=== PATIENT | male | born 1970 | race African-American/Black ===

== ENCOUNTER 2018-01-04 16:22 | Emergency (ER) | payer BC ==
[2018-01-04] MEDS ORDERED: Sodium Chloride 0.9% 10 ML Syringe FLUSH PRN (16:36)
[2018-01-04] MEDS ORDERED: Lactated Ringers 1,000 ML IV ONE (16:36)
--- NOTE | 2018-01-04 16:38 | EDM.PDOC ---
ED HPI GENERAL MEDICAL PROBLEM - General Chief Complaint: Neurological Problem Stated Complaint: Dizziness; Lightheaded Time Seen by Provider: 01/04/18 16:26 Source of Information: Reports: Patient, RN, RN Notes Reviewed History Limitations: Reports: No Limitations - History of Present Illness INITIAL COMMENTS - FREE TEXT/NARRATIVE: Patient presents to the ED at [facility] complaining of dizziness and lightheadedness that started around 14:50 today. Patient the symptoms started while he was at work. He left for a brief time to sit in his car. His symptoms got better so he went back to work. He states the symptoms returned and he was told to be seen in the ED. He tried laying down at work, but no relief of symptoms. Patient denies any SOB. No chest pain. Patient denies any N/V/D. No focal neurological deficits. Onset: Gradual Onset Date: 01/04/18 Onset Time: 14:50 Duration: Waxing/Waning - Related Data Allergies Allergy/AdvReac Type Severity Reaction Status Date / Time seafood Allergy Other Uncoded 01/04/18 16:42 Home Meds: Home Meds Aspirin 325 mg PO DAILY 01/04/18 [History] Carvedilol [Coreg] 1.5 cap PO BID 01/04/18 [History] Codeine/Promethazine [Phenergan with Codeine] 5 ml PO Q4HR PRN 01/04/18 [History ] Cyclobenzaprine [Flexeril] 10 mg PO TID 01/04/18 [History] Empagliflozin [Jardiance] 10 mg PO DAILY 01/04/18 [History] Furosemide [Lasix] 40 mg PO DAILY 01/04/18 [History] Lisinopril [Prinivil] 20 mg PO BID 01/04/18 [History] Pantoprazole Sodium [Protonix] 20 mg PO DAILY 01/04/18 [History] Pravastatin [Pravachol] 80 mg PO BEDTIME 01/04/18 [History] Spironolact/Hydrochlorothiazid [Aldactazide 25-25] 1 tab PO DAILY 01/04/18 [ History] predniSONE [Prednisone] 20 mg PO 01/04/18 [History] ED ROS GENERAL - Review of Systems Review Of Systems: See Below Constitutional: Denies: Fever, Chills, Weakness HEENT: Denies: Vision Change Respiratory: Denies: Shortness of Breath, Cough Cardiovascular: Reports: Lightheadedness. Denies: Chest Pain, Palpitations GI/Abdominal: Denies: Abdominal Pain, Nausea, Vomiting Skin: Reports: No Symptoms Neurological: Reports: No Symptoms, Dizziness. Denies: Headache, Numbness, Paresthesia, Tingling ED EXAM, DIZZINESS - Physical Exam Exam: See Below General Appearance: Alert, No Apparent Distress Eye Exam: Bilateral Eye: EOMI, Normal Inspection, PERRL Ears: Normal External Exam, Normal Canal, Normal TMs Head Exam: Atraumatic, Normocephalic Neck: Supple Respiratory/Chest: No Respiratory Distress, Lungs Clear, Normal Breath Sounds Cardiovascular: Normal Peripheral Pulses, Regular Rate, Rhythm GI/Abdominal: Normal Bowel Sounds, Soft, Non-Tender Neurological: Alert, Oriented x 3 Skin Exam: Warm, Dry, Intact, Normal Color EKG INTERPRETATION EKG Date: 01/04/18 Time: 16:54 Rhythm: NSR Rate (Beats/Min): 93 [place]: Normal P-Wave: Present QRS: Normal ST-T: Normal QT: Normal TN/PQ Interval: 0.16 Comparison: NA - No Prior EKG EKG Interpretation Comments: 1. Sinus Rhythm 2. Nonspecific ST & T wave abnormality Course - Vital Signs Last Recorded V/S: Last Vital Signs Temp 35.6 C 01/04/18 16:38 Pulse 90 01/04/18 16:38 Resp 16 01/04/18 16:38 BP 126/64 01/04/18 16:38 Pulse Ox 98 01/04/18 16:38 - Orders/Labs/Meds Orders: Active Orders 24 hr Category Date Time Status EKG 12 Lead [EKG Documentation Completion] [RC] STAT Care 01/04/18 16:33 Active Head wo Cont [CT] Stat Exams 01/04/18 16:34 Taken LACTIC ACID [CHEM] Stat Lab 01/04/18 16:50 Received UA W/MICROSCOPIC [URIN] Stat Lab 01/04/18 17:44 Ordered Sodium Chloride 0.9% [Normal Saline] 1,000 ml Med 01/04/18 17:49 Active IV ONETIME Sodium Chloride 0.9% [Saline Flush] Med 01/04/18 16:36 Active 10 ml FLUSH ASDIRECTED PRN Peripheral IV Insertion Adult [OM.PC] Routine Oth 01/04/18 16:36 Ordered Medication Orders Sodium Chloride (Normal Saline) 1,000 mls @ 999 mls/hr IV ONETIME ONE Stop: 01/04/18 18:49 Last Admin: 01/04/18 17:53 Dose: 999 mls/hr Sodium Chloride (Saline Flush) 10 ml FLUSH ASDIRECTED PRN PRN Reason: Keep Vein Open Labs: Laboratory Tests 01/04/18 01/04/18 01/04/18 Range/Units 16:50 16:50 16:50 WBC 6.6 (4.0-10.0) x10^3/uL RBC 5.32 (4.5-6.0) x10^6/uL Hgb 13.1 L (14.0-18.0) g/dL Hct 36.2 L (40.0-52.0) % MCV 68.0 L (78.0-93.0) fL MCH 24.6 L (26.0-32.0) pg MCHC 36.2 H (32.0-36.0) g/dL RDW Coeff of Fernando 21.1 H (10.0-15.0) % Plt Count 115 L (130-400) x10^3/uL Neut % (Auto) 56.4 (50.0-80.0) % Lymph % (Auto) 33.3 (25.0-50.0) % [place]hing % (Auto) 6.2 (2.0-11.0) % Eos % (Auto) 3.3 (0.0-4.0) % Baso % (Auto) 0.8 (0.2-1.2) % Sodium 130 L (136-145) mmol/L Potassium 3.6 (3.5-5.1) mmol/L Chloride 95 L (98-107) mmol/L Carbon Dioxide 28 (21-32) mmol/L Anion Gap 10.6 BUN 25 H (7-18) mg/dL Creatinine 1.9 H (0.70-1.30) mg/dL Est Cr Clr Drug Dosing TNP Estimated GFR (MDRD) 46 Glucose 354 H (74-106) mg/dL Calcium 8.5 (8.5-10.1) mg/dL Corrected Calcium 8.66 (8.5-10.1) mg/dL Magnesium 2.0 (1.8-2.4) mg/dL Total Bilirubin 0.9 (0.2-1.0) mg/dL AST 28 (15-37) U/L ALT 37 (16-63) U/L Alkaline Phosphatase 90 (46-116) U/L Creatine Kinase 211 (39-308) U/L Troponin I < 0.017 (<=0.056) ng/mL C-Reactive Protein < 0.2 (<=0.9) mg/dL Total Protein 7.3 (6.4-8.2) g/dL Albumin 3.8 (3.4-5.0) g/dL Globulin 3.5 Albumin/Globulin Ratio 1.09 Amylase 69 (25-115) U/L Lipase 380 (73-393) U/L Urine Color (YELLOW) Urine Appearance (CLEAR) Urine pH (5.0-8.0) Ur Specific [place] Urine Protein (NEGATIVE) mg/dL Urine Glucose (UA) (NEGATIVE) mg/dL Urine Ketones (NEGATIVE) mg/dL Urine Occult Blood (NEGATIVE) Urine Nitrite (NEGATIVE) Urine Bilirubin (NEGATIVE) Urine Urobilinogen (0.2) EU/dL Ur Leukocyte Esterase (NEGATIVE) Urine RBC (NOT SEEN) /HPF Urine WBC (NOT SEEN) /HPF Ur Squamous Epith Cells (NEGATIVE) /HPF Urine Bacteria (NEGATIVE) /HPF Urine Mucus (NEGATIVE) /LPF Urine Opiates Screen (NEAGTIVE) Ur Buprenorphine Scrn (NEGATIVE) Ur Oxycodone Screen (NEGATIVE) Urine Methadone Screen (NEGATIVE) Ur Barbiturates Screen (NEGATIVE) Ur Tricyclics Screen (NEGATIVE) Ur Amphetamine Screen (NEGATIVE) U Methamphetamines Scrn (NEGATIVE) Urine MDMA Screen (NEGATIVE) U Benzodiazepines Scrn (NEGATIVE) U Cocaine Metab Screen (NEGATIVE) U Marijuana (THC) Screen (NEGATIVE) 01/04/18 01/04/18 Range/Units 17:44 17:44 WBC (4.0-10.0) x10^3/uL RBC (4.5-6.0) x10^6/uL Hgb (14.0-18.0) g/dL Hct (40.0-52.0) % MCV (78.0-93.0) fL MCH (26.0-32.0) pg MCHC (32.0-36.0) g/dL RDW Coeff of Fernando (10.0-15.0) % Plt Count (130-400) x10^3/uL Neut % (Auto) (50.0-80.0) % Lymph % (Auto) (25.0-50.0) % [place] % (Auto) (2.0-11.0) % Eos % (Auto) (0.0-4.0) % Baso % (Auto) (0.2-1.2) % Sodium (136-145) mmol/L Potassium (3.5-5.1) mmol/L Chloride (98-107) mmol/L Carbon Dioxide (21-32) mmol/L Anion Gap BUN (7-18) mg/dL Creatinine (0.70-1.30) mg/dL Est Cr Clr Drug Dosing Estimated GFR (MDRD) Glucose (74-106) mg/dL Calcium (8.5-10.1) mg/dL Corrected Calcium (8.5-10.1) mg/dL Magnesium (1.8-2.4) mg/dL Total Bilirubin (0.2-1.0) mg/dL AST (15-37) U/L ALT (16-63) U/L Alkaline Phosphatase (46-116) U/L Creatine Kinase (39-308) U/L Troponin I (<=0.056) ng/mL C-Reactive Protein (<=0.9) mg/dL Total Protein (6.4-8.2) g/dL Albumin (3.4-5.0) g/dL Globulin Albumin/Globulin Ratio Amylase (25-115) U/L Lipase (73-393) U/L Urine Color Yellow (YELLOW) Urine Appearance Slightly cloudy H (CLEAR) Urine pH 5.5 (5.0-8.0) Ur Specific [place] <=1.005 Urine Protein Negative (NEGATIVE) mg/dL Urine Glucose (UA) 500 H (NEGATIVE) mg/dL Urine Ketones Negative (NEGATIVE) mg/dL Urine Occult Blood Negative (NEGATIVE) Urine Nitrite Negative (NEGATIVE) Urine Bilirubin Negative (NEGATIVE) Urine Urobilinogen 0.2 (0.2) EU/dL Ur Leukocyte Esterase Trace H (NEGATIVE) Urine RBC 0-5 (NOT SEEN) /HPF Urine WBC 0-5 (NOT SEEN) /HPF Ur Squamous Epith Cells Occasional H (NEGATIVE) /HPF Urine Bacteria Few H (NEGATIVE) /HPF Urine Mucus Few H (NEGATIVE) /LPF Urine Opiates Screen Negative (NEAGTIVE) Ur Buprenorphine Scrn Negative (NEGATIVE) Ur Oxycodone Screen Negative (NEGATIVE) Urine Methadone Screen Negative (NEGATIVE) Ur Barbiturates Screen Negative (NEGATIVE) Ur Tricyclics Screen Negative (NEGATIVE) Ur Amphetamine Screen Negative (NEGATIVE) U Methamphetamines Scrn Negative (NEGATIVE) Urine MDMA Screen Negative (NEGATIVE) U Benzodiazepines Scrn Negative (NEGATIVE) U Cocaine Metab Screen Negative (NEGATIVE) U Marijuana (THC) Screen Negative (NEGATIVE) Meds: Medications Generic Name Dose Route Start Last Admin Trade Name Freq PRN Reason Stop Dose Admin Sodium Chloride 1,000 mls @ 999 mls/hr 01/04/18 17:49 01/04/18 17:53 Normal Saline IV 01/04/18 18:49 999 mls/hr ONETIME ONE Administration Sodium Chloride 10 ml 01/04/18 16:36 Saline Flush FLUSH ASDIRECTED PRN Keep Vein Open Discontinued Medications Generic Name Dose Route Start Last Admin Trade Name Freq PRN Reason Stop Dose Admin Lactated Ringer's 1,000 mls @ 999 mls/hr 01/04/18 16:36 Ringers, Lactated IV 01/04/18 17:36 ONETIME ONE - Radiology Interpretation Free Text/Narrative:: CT Head: 8mm subacute versus chronic left cerebellar lacunar infarct; Mild to moderate chronic small vessel ischemic changes See scanned report in EMR CT Results Date: 01/04/18 CT Results Time: 17:00 Departure - Departure Time of Disposition: 18:25 Disposition: Home, Self-Care 01 Condition: Good Clinical Impression: Dizziness, Dehydration Hyperglycemia due to type 2 diabetes mellitus Qualifiers: Diabetes mellitus snf insulin use: without snf use Qualified Code(s ): E11.65 - Type 2 diabetes mellitus with hyperglycemia - Discharge Information Instructions: Dehydration, Adult, [id number], Type 2 Diabetes Mellitus, Diagnosis, Adult, Dizziness Referrals: Ronnie Real MD [Primary Care Provider] - Forms: ED Department Discharge Additional Instructions: 1. Stay well hydrated and rest 2. Continue with home medications the same 3. OK to return to work 4. Call [place] and set up an appointment to see Dr. Real next week 5. May need an MRI of Brain for further evaluation 6. Call with any questions/concerns ED Communication - ED Communication Date/Time Date: 01/04/18 Time Called: 18:20 - Discussed Case With (1) Discussed Case With (1): Outpatient Provider Person/s Notified (1): Ronnie Real - Conversation Summary Outpatient Provider Agreed to Follow-up on this Patient: Yes Patient Aware of Amendments fo Care Plan: Yes - Problem List Review Problem List Initiated/Reviewed/Updated: Yes - My Orders Last 24 Hours: My Active Orders 01/04/18 16:33 EKG 12 Lead [EKG Documentation Completion] [RC] STAT 01/04/18 16:34 Head wo Cont [CT] Stat 01/04/18 16:36 Sodium Chloride 0.9% [Saline Flush] 10 ml FLUSH ASDIRECTED PRN Peripheral IV Insertion Adult [OM.PC] Routine 01/04/18 16:50 LACTIC ACID [CHEM] Stat 01/04/18 17:44 UA W/MICROSCOPIC [URIN] Stat 01/04/18 17:49 Sodium Chloride 0.9% [Normal Saline] 1,000 ml IV ONETIME - Assessment/Plan Last 24 Hours: My Active Orders 01/04/18 16:33 EKG 12 Lead [EKG Documentation Completion] [RC] STAT 01/04/18 16:34 Head wo Cont [CT] Stat 01/04/18 16:36 Sodium Chloride 0.9% [Saline Flush] 10 ml FLUSH ASDIRECTED PRN Peripheral IV Insertion Adult [OM.PC] Routine 01/04/18 16:50 LACTIC ACID [CHEM] Stat 01/04/18 17:44 UA W/MICROSCOPIC [URIN] Stat 01/04/18 17:49 Sodium Chloride 0.9% [Normal Saline] 1,000 ml IV ONETIME Assessment:: Uncontrolled DM Hyperglycemia Dizziness Plan: Case discussed with Ivan Real. Reviewed CT results and labs. No admission warranted. Will rehydrate patient and discharge home. Recommend MRI outpatient. Will need additional blood work when seen in clinic.
[2018-01-04 17:20] LABS: CHLORIDE,CL 95 mmol/L (98-107); SODIUM,NA 130 mmol/L (136-145)
[2018-01-04] MEDS: Sodium Chloride 0.9% 1,000 ML IV ONE (17:53)
== END 2018-01-04 19:29 | disposition home or self-care (01) ==
LOC: VM.ED 16:22
DX: R42 Dizziness and giddiness (principal); E86.0 Dehydration; Z91.013 Allergy to seafood; Z79.82 Long term (current) use of aspirin; Z79.899 Other long term (current) drug therapy
CPT/HCPCS: 36415; 70450; 80053; 80305; 81001; 82150; 82550; 83605; 83690; 83735; 84484; 85025; 86140; 93005; 96360; 96361; 99284; J7030

== ENCOUNTER 2018-02-13 16:59 | Emergency (ER) | payer BC ==
[2018-02-13] MEDS ORDERED: Sodium Chloride 0.9% 500 ML IV SCH (17:30)
--- NOTE | 2018-02-13 17:46 | EDM.PDOC ---
ED HPI GENERAL MEDICAL PROBLEM - General Chief Complaint: Headache Stated Complaint: headache, dizziness Time Seen by Provider: 02/13/18 17:08 Source of Information: Reports: Patient, EMS - History of Present Illness INITIAL COMMENTS - FREE TEXT/NARRATIVE: Patient comes in this afternoon via EMS with complaints of headache, SOB, and dizziness. He also states that earlier this morning before he had some chest pain. He took a baby aspirin at that time chest pain resolved within an hour and he went to work with no complaints until about 4:00 this afternoon. He complains of a headache that starts in the back of his head that radiates throughout his whole head. He describes this pain as viselike. His family is also in the room and they state that when he got home he was diaphoretic, complaining of some left arm pain as well as left sided shoulder pain. He also states that he has slightly short of breath on arrival. Patient was seen here in December with similar complaints with regards to the dizziness. He was sent for further evaluation when CT results here were negative. MRI shows that he does have some subacute left PICA infarcts that also showed moderate chronic small vessel ischemic disease in the superior internal white matter. Additional medical history includes diabetes, hypertension, sickle cell trait disease, hypercholesterolemia, renal disease. 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 Frontal Head Pain Score (Numeric/FACES): 4 - Related Data Allergies Allergy/AdvReac Type Severity Reaction Status Date / Time seafood Allergy Other Uncoded 02/13/18 17:17 Home Meds: Home Meds Aspirin 325 mg PO DAILY 01/04/18 [History] Carvedilol [Coreg] 1.5 cap PO BID 01/04/18 [History] Cyclobenzaprine [Flexeril] 10 mg PO TID PRN 01/04/18 [History] Empagliflozin [Jardiance] 10 mg PO DAILY 01/04/18 [History] Furosemide [Lasix] 40 mg PO DAILY 01/04/18 [History] Lisinopril [Prinivil] 20 mg PO BID 01/04/18 [History] Pravastatin [Pravachol] 80 mg PO BEDTIME 01/04/18 [History] Spironolact/Hydrochlorothiazid [Aldactazide 25-25] 1 tab PO DAILY 01/04/18 [ History] Past Medical History Cardiovascular History: Reports: CAD, High Cholesterol, Hypertension, Other ( See Below) Other Cardiovascular History: L ventricle hypertrophy Neurological History: Reports: CVA Endocrine/Metabolic History: Reports: Diabetes, Type II Hematologic History: Reports: Sickle Cell Anemia Social & Family History - Tobacco Use Smoking Status *Q: Never Smoker - Recreational Drug Use Recreational Drug Use: No ED ROS GENERAL - Review of Systems Review Of Systems: See Below Constitutional: Reports: No Symptoms HEENT: Reports: No Symptoms Respiratory: Reports: Shortness of Breath Cardiovascular: Reports: No Symptoms Endocrine: Reports: No Symptoms GI/Abdominal: Reports: No Symptoms : Reports: No Symptoms Musculoskeletal: Reports: No Symptoms Skin: Reports: No Symptoms Neurological: Reports: No Symptoms Psychiatric: Reports: No Symptoms Hematologic/Lymphatic: Reports: No Symptoms Immunologic: Reports: No Symptoms - Physical Exam Exam: See Below Exam Limited By: No Limitations General Appearance: Alert, WD/WN, Mild Distress Eye Exam: Bilateral Eye: EOMI, Normal Inspection, PERRL Ears: Normal External Exam, Normal Canal, Hearing Grossly Normal, Normal TMs Nose: Normal Inspection, Normal Mucosa, No Blood Throat/Mouth: Normal Inspection, Normal Lips, Normal Teeth, Normal Gums, Normal Oropharynx, Normal Voice, No Airway Compromise Head Exam: Atraumatic, Normocephalic Neck: Normal Inspection, Supple, Non-Tender, Full Range of Motion Respiratory/Chest: No Respiratory Distress, Lungs Clear, Normal Breath Sounds, No Accessory Muscle Use, Chest Non-Tender Cardiovascular: Normal Peripheral Pulses, Regular Rate, Rhythm, No Edema, No Gallop, No JVD, No Murmur, No Rub GI/Abdominal: Normal Bowel Sounds, Soft, Non-Tender, No Organomegaly, No Distention, No Abnormal Bruit, No Mass Neuro Exam (Abbreviated): Alert, Oriented, CN II-XII Intact, Normal Cognition, Normal Gait, Normal Reflexes, No Motor/Sensory Deficits Back Exam: Normal Inspection, Full Range of Motion, NT Extremities: Normal Inspection, Normal Range of Motion, Non-Tender, No Pedal Edema, Normal Capillary Refill Psychiatric: Normal Affect, Normal Mood Skin Exam: Warm, Dry, Intact, Normal Color, No Rash EKG INTERPRETATION EKG Date: 02/13/18 Time: 17:50 Rhythm: NSR Rate (Beats/Min): 85 [place]: Normal P-Wave: Present QRS: Normal ST-T: Normal QT: Normal EKG Interpretation Comments: Sinus rhythm Possible old inferior NE Course - Vital Signs Last Recorded V/S: Last Vital Signs Temp 36.6 C 02/13/18 17:00 Pulse 86 02/13/18 19:03 Resp 16 02/13/18 19:03 BP 112/69 02/13/18 19:03 Pulse Ox 98 02/13/18 19:03 - Orders/Labs/Meds Orders: Active Orders 24 hr Category Date Time Status EKG Documentation Completion [RC] STAT Care 02/13/18 17:17 Ordered RT Aerosol Therapy [RC] ASDIRECTED Care 02/13/18 17:47 Ordered Chest 2V [CR] Stat Exams 02/13/18 17:17 Ordered Head wo Cont [CT] Stat Exams 02/13/18 17:17 Ordered CULTURE STREP A CONFIRMATION [RM] Stat Lab 02/13/18 17:35 Results PRO B-TYPE NATRIUR PEPT,BNPPRO [CHEM] Urgent Lab 02/13/18 18:57 Ordered STREP SCRN A RAPID W CULT CONF [RM] Stat Lab 02/13/18 17:26 Ordered URINALYSIS W/MICROSCOPIC [UA W/MICROSCOPIC] [URIN] Stat Lab 02/13/18 17:18 Ordered Labs: Laboratory Tests 02/13/18 02/13/18 02/13/18 Range/Units 17:42 17:42 17:42 WBC 7.1 (4.0-10.0) x10^3/uL RBC 5.67 (4.5-6.0) x10^6/uL Hgb 13.4 L (14.0-18.0) g/dL Hct 38.2 L (40.0-52.0) % MCV 67.4 L (78.0-93.0) fL MCH 23.6 L (26.0-32.0) pg MCHC 35.1 (32.0-36.0) g/dL RDW Coeff of Fernando 21.2 H (10.0-15.0) % Plt Count 119 L (130-400) x10^3/uL Neut % (Auto) 67.7 (50.0-80.0) % Lymph % (Auto) 21.1 L (25.0-50.0) % [place] % (Auto) 7.2 (2.0-11.0) % Eos % (Auto) 3.4 (0.0-4.0) % Baso % (Auto) 0.6 (0.2-1.2) % D-Dimer, Quantitative 0.52 (<=0.58) mg/LFEU Sodium 136 (136-145) mmol/L Potassium 3.8 (3.5-5.1) mmol/L Chloride 99 (98-107) mmol/L Carbon Dioxide 28 (21-32) mmol/L Anion Gap 12.8 (10-20) mmol/L BUN 34 H (7-18) mg/dL Creatinine 2.1 H (0.70-1.30) mg/dL Est Cr Clr Drug Dosing TNP Estimated GFR (MDRD) 41 Glucose 223 H (74-106) mg/dL Lactic Acid (0.4-2.0) mmol/L Calcium 8.6 (8.5-10.1) mg/dL Corrected Calcium 8.44 L (8.5-10.1) mg/dL Magnesium 2.3 (1.8-2.4) mg/dL Total Bilirubin 1.0 (0.2-1.0) mg/dL AST 19 (15-37) U/L ALT 32 (16-63) U/L Alkaline Phosphatase 80 (46-116) U/L Troponin I < 0.017 (<=0.056) ng/mL C-Reactive Protein (<=0.9) mg/dL Total Protein 7.6 (6.4-8.2) g/dL Albumin 4.2 (3.4-5.0) g/dL Globulin 3.4 Albumin/Globulin Ratio 1.24 TSH, Ultra Sensitive 1.357 (0.358-3.74) uIU/mL 02/13/18 02/13/18 Range/Units 17:42 17:42 WBC (4.0-10.0) x10^3/uL RBC (4.5-6.0) x10^6/uL Hgb (14.0-18.0) g/dL Hct (40.0-52.0) % MCV (78.0-93.0) fL MCH (26.0-32.0) pg MCHC (32.0-36.0) g/dL RDW Coeff of Fernando (10.0-15.0) % Plt Count (130-400) x10^3/uL Neut % (Auto) (50.0-80.0) % Lymph % (Auto) (25.0-50.0) % [place] % (Auto) (2.0-11.0) % Eos % (Auto) (0.0-4.0) % Baso % (Auto) (0.2-1.2) % D-Dimer, Quantitative (<=0.58) mg/LFEU Sodium (136-145) mmol/L Potassium (3.5-5.1) mmol/L Chloride (98-107) mmol/L Carbon Dioxide (21-32) mmol/L Anion Gap (10-20) mmol/L BUN (7-18) mg/dL Creatinine (0.70-1.30) mg/dL Est Cr Clr Drug Dosing Estimated GFR (MDRD) Glucose (74-106) mg/dL Lactic Acid 1.5 (0.4-2.0) mmol/L Calcium (8.5-10.1) mg/dL Corrected Calcium (8.5-10.1) mg/dL Magnesium (1.8-2.4) mg/dL Total Bilirubin (0.2-1.0) mg/dL AST (15-37) U/L ALT (16-63) U/L Alkaline Phosphatase (46-116) U/L Troponin I (<=0.056) ng/mL C-Reactive Protein < 0.2 (<=0.9) mg/dL Total Protein (6.4-8.2) g/dL Albumin (3.4-5.0) g/dL Globulin Albumin/Globulin Ratio TSH, Ultra Sensitive (0.358-3.74) uIU/mL Meds: Medications Discontinued Medications Generic Name Dose Route Start Last Admin Trade Name Freq PRN Reason Stop Dose Admin Albuterol/Ipratropium 3 ml 02/13/18 17:47 02/13/18 18:02 Duoneb 3.0-0.5 Mg/3 Ml NEB 02/13/18 17:48 3 ml ONETIME ONE Administration Aspirin 324 mg 02/13/18 17:52 02/13/18 17:59 Aspirin PO 02/13/18 17:53 324 mg ONETIME ONE Administration Sodium Chloride 1,000 mls @ 100 mls/hr 02/13/18 18:00 02/13/18 17:59 Normal Saline IV 100 mls/hr ASDIRECTED MARY Administration Departure - Departure Time of Disposition: 19:10 Disposition: DC/Tfer to Acute Hospital 02 Condition: Good Clinical Impression: TIA (transient ischemic attack) - Discharge Information Referrals: Ronnie Real MD [Primary Care Provider] - Forms: ED Department Discharge, Interfacility Transfer EMTALA ED Communication - Discussed Case With (1) Discussed Case With (1): Admitting Provider, Inpatient Motor Coach Operator (I did visit with Dr. Walden, neurology at [facility]. He did recommend transfer. Dr. Katz consulted and report given to hospitalist services.) - My Orders Last 24 Hours: My Active Orders 02/13/18 17:17 EKG Documentation Completion [RC] STAT Chest 2V [CR] Stat Head wo Cont [CT] Stat 02/13/18 17:18 URINALYSIS W/MICROSCOPIC [UA W/MICROSCOPIC] [URIN] Stat 02/13/18 17:26 STREP SCRN A RAPID W CULT CONF [RM] Stat 02/13/18 17:35 CULTURE STREP A CONFIRMATION [RM] Stat 02/13/18 17:47 RT Aerosol Therapy [RC] ASDIRECTED 02/13/18 18:57 PRO B-TYPE NATRIUR PEPT,BNPPRO [CHEM] Urgent - Assessment/Plan Last 24 Hours: My Active Orders 02/13/18 17:17 EKG Documentation Completion [RC] STAT Chest 2V [CR] Stat Head wo Cont [CT] Stat 02/13/18 17:18 URINALYSIS W/MICROSCOPIC [UA W/MICROSCOPIC] [URIN] Stat 02/13/18 17:26 STREP SCRN A RAPID W CULT CONF [RM] Stat 02/13/18 17:35 CULTURE STREP A CONFIRMATION [RM] Stat 02/13/18 17:47 RT Aerosol Therapy [RC] ASDIRECTED 02/13/18 18:57 PRO B-TYPE NATRIUR PEPT,BNPPRO [CHEM] Urgent
[2018-02-13] MEDS ORDERED: Albuterol/Ipratropium 3.0-0.5 MG/3 ML Neb Soln NEB ONE (17:47)
[2018-02-13] MEDS ORDERED: Furosemide 20 MG/2 ML VIAL IV ONE (17:48)
[2018-02-13] MEDS ORDERED: Aspirin 81 MG Tab.Chew PO ONE (17:52)
[2018-02-13] MEDS ORDERED: Sodium Chloride 0.9% 1,000 ML IV SCH (18:00)
[2018-02-13 18:29] LABS: CHLORIDE,CL 99 mmol/L (98-107); SODIUM,NA 136 mmol/L (136-145)
== END 2018-02-13 19:22 | disposition short-term general hospital (02) ==
LOC: VM.ED 16:59
DX: G45.9 Transient cerebral ischemic attack, unspecified (principal); I10 Essential (primary) hypertension; E11.9 Type 2 diabetes mellitus without complications; E78.00 Pure hypercholesterolemia, unspecified; D57.1 Sickle-cell disease without crisis; Z79.82 Long term (current) use of aspirin; Z79.899 Other long term (current) drug therapy; Z91.013 Allergy to seafood
CPT/HCPCS: 70450; 71046; 80053; 81001; 83605; 83735; 83880; 84443; 84484; 85025; 85379; 86140; 87081; 87880-QW; 93005; 94640; 96360; 99285; A9270-GY; J7030

== ENCOUNTER 2020-09-29 14:17 | Emergency (ER) | payer BC ==
--- NOTE | 2020-09-29 14:55 | EDM.PDOC ---
ED HPI GENERAL MEDICAL PROBLEM - General Chief Complaint: Respiratory Problem Stated Complaint: SHORTNESS OF BREATH, DOESN'T KNOW IF HE HAS COVID Time Seen by Provider: 09/29/20 14:45 Source of Information: Reports: Patient History Limitations: Reports: No Limitations - History of Present Illness INITIAL COMMENTS - FREE TEXT/NARRATIVE: Patient states Tuesday morning he started having shortness of breath and a little bit of fatigue with getting up and walking around with intermittent cough. He states midday that he started having a mild discomfort in the middle of his shoulder blades that seem to get worse if he was trying to get a deep breath. He describes it about a 2 out of 10 more of a discomfort than anything. He states he has had these kind of symptoms before when he had pneumonia several years ago. Family history mother includes congestive heart failure no coronary artery disease no known AAA history in the family. He denies any chest pain orthopnea PND mild cough negative wheezing negative changes smell taste loss of either no chills or fever no lower extremity edema Onset: Gradual Duration: Day(s): Severity: Mild Worsens with: Reports: Breathing Associated Symptoms: Reports: Cough, Shortness of Breath. Denies: Confusion, C hest Pain, cough w sputum, Diaphoresis, Fever/Chills, Headaches, Malaise, Nausea/Vomiting, Weakness - Related Data Allergies Allergy/AdvReac Type Severity Reaction Status Date / Time seafood Allergy Other Uncoded 09/29/20 14:59 Home Meds: Home Meds Aspirin 325 mg PO DAILY 01/04/18 [History] Cyclobenzaprine [Flexeril] 10 mg PO TID PRN 01/04/18 [History] Empagliflozin [Jardiance] 10 mg PO DAILY 01/04/18 [History] Pravastatin [Pravachol] 80 mg PO BEDTIME 01/04/18 [History] Spironolact/Hydrochlorothiazid [Aldactazide 25-25] 1 tab PO DAILY 01/04/18 [History] carvediloL [Coreg] 37.5 mg PO BID 01/04/18 [History] lisinopriL [Prinivil] 20 mg PO BID 01/04/18 [History] glipiZIDE [Glucotrol XL] 5 mg PO BID 09/29/20 [History] Past Medical History Cardiovascular History: Reports: CAD, High Cholesterol, Hypertension, Other (See Below) Other Cardiovascular History: L ventricle hypertrophy Neurological History: Reports: CVA Endocrine/Metabolic History: Reports: Diabetes, Type II Hematologic History: Reports: Sickle Cell Anemia ED ROS GENERAL - Review of Systems Review Of Systems: See Below Constitutional: Reports: No Symptoms. Denies: Fever, Chills, Malaise, Weakness, Fatigue, Diaphoresis, Weight Gain HEENT: Reports: No Symptoms Respiratory: Reports: Shortness of Breath, Cough. Denies: Wheezing, Pleuritic Chest Pain, Sputum, Hemoptysis Cardiovascular: Denies: Chest Pain, Blood Pressure Problem, Claudication, Edema, Orthopnea, Palpitations Endocrine: Reports: No Symptoms GI/Abdominal: Reports: No Symptoms Musculoskeletal: Reports: No Symptoms Skin: Reports: No Symptoms Neurological: Reports: No Symptoms Hematologic/Lymphatic: Reports: No Symptoms Immunologic: Reports: No Symptoms ED EXAM, GENERAL - Physical Exam Exam: See Below Exam Limited By: No Limitations General Appearance: Alert, WD/WN, No Apparent Distress, Other (Patient is talking normal respiratory effort there is no signs symptoms of any respiratory distress) Eye Exam: Bilateral Eye: PERRL Ears: Normal External Exam, Normal Canal, Hearing Grossly Normal, Normal TMs Nose: Normal Inspection, Normal Mucosa Throat/Mouth: Normal Inspection, Normal Lips, Normal Teeth, Normal Gums, Normal Oropharynx, Normal Voice, No Airway Compromise Head: Atraumatic, Normocephalic Neck: Normal Inspection, Supple, Non-Tender, Full Range of Motion Respiratory/Chest: No Respiratory Distress, Lungs Clear, Normal Breath Sounds, No Accessory Muscle Use, Chest Non-Tender. No: Decreased Breath Sounds Cardiovascular: Normal Peripheral Pulses, Regular Rate, Rhythm, No Edema, No JVD, No Murmur, No Rub GI/Abdominal: Normal Bowel Sounds, Soft, Non-Tender, No Organomegaly, No Distention Extremities: Normal Inspection, Normal Range of Motion, No Pedal Edema, Normal Capillary Refill Neurological: Alert, Oriented, CN II-XII Intact, Normal Cognition, Normal Gait, No Motor/Sensory Deficits Psychiatric: Normal Affect, Normal Mood Skin Exam: Warm, Intact, Normal Color, No Rash Course - Vital Signs Text/Narrative:: Covid negative chest x-ray minimal blunting of left costophrenic sulcus Last Recorded V/S: Last Vital Signs Temp 35.8 C L 01/04/21 14:40 Pulse 97 09/29/20 14:40 Resp 18 09/29/20 14:40 BP 121/80 09/29/20 16:12 Pulse Ox 97 09/29/20 14:40 - Orders/Labs/Meds Labs: Laboratory Tests 09/29/20 Range/Units 14:55 SARS CoV-2 RNA Rapid ELIZABET Negative (NEGATIVE) Meds: Discussed with patient negative Covid no pneumonia found on chest x-ray will treat with albuterol inhaler and steroids and have patient follow-up with new PCP in the morning secondary to not being established with anybody after Dr. Marques has left. Instructed the patient to return to the emergency room if anything got worse or changes - Radiology Interpretation Free Text/Narrative:: Patient is to follow-up in clinic tomorrow at 930 to establish primary care with new PCP after Dr. Marques has left. Will treat with albuterol inhaler and steroids. Patient is okay with diagnosis and treatment and follow-up Vital signs were rechecked blood pressure was 121/80 Departure - Departure Time of Disposition: 16:05 Disposition: Home, Self-Care 01 Condition: Good Clinical Impression: SOB (shortness of breath) - Discharge Information *PRESCRIPTION DRUG MONITORING PROGRAM REVIEWED*: Not Applicable *COPY OF PRESCRIPTION DRUG MONITORING REPORT IN PATIENT ANGELA: Not Applicable Instructions: Shortness of Breath, Adult, [id number] Referrals: Provider,Unknown [Primary Care Provider] - Forms: ED Department Discharge Additional Instructions: Patient has been instructed to follow-up in clinic tomorrow at 9:[address] Maira Rene Return to the emergency room if anything changes or gets worse Use your albuterol inhaler 1 to 2 puffs every 4-6 hours for the next 2 to 3 days make sure you wash her mouth out after each use Take your Decadron steroids 8 mg daily for the next 3 days If anything changes or gets worse come back to the emergency room Sepsis Event Note (ED) - Focused Exam Vital Signs: Vital Signs Temp Pulse Resp BP Pulse Ox 09/29/20 16:12 121/80 09/29/20 14:40 35.8 C L 97 18 165/93 H 97 - Problem List & Annotations (1) SOB (shortness of breath) SNOMED Code(s): 562736255 Code(s): R06.02 - SHORTNESS OF BREATH Status: Acute Current Visit: Yes
--- NOTE | 2020-09-29 16:00 | CR ---
[id number] RAD/RAD Chest PA And Lateral EXAM: RAD Chest PA And Lateral CLINICAL DATA: SHORTNESS OF BREATH COMPARISON: CORRELATION IS MADE WITH FEBRUARY 13, 2018 FINDINGS: There is minimal pleural reaction at the left lung base The lungs otherwise are clear The cardiac silhouette is stable IMPRESSION: DEVELOPMENT OF MINIMAL BLUNTING OF LEFT COSTOPHRENIC SULCUS Preston Hough MD 09/29/20 [id number] Thank you for allowing us to participate in the care of your patient.
== END 2020-09-29 16:26 | disposition home or self-care (01) ==
LOC: VM.ED 14:17
DX: R06.02 Shortness of breath (principal); R05 Cough; R53.83 Other fatigue; I25.10 Atherosclerotic heart disease of native coronary artery without angina pectoris; E78.00 Pure hypercholesterolemia, unspecified; I10 Essential (primary) hypertension; E11.9 Type 2 diabetes mellitus without complications; Z91.013 Allergy to seafood; Z79.82 Long term (current) use of aspirin; Z79.899 Other long term (current) drug therapy; Z20.822 Contact with and (suspected) exposure to COVID-19
CPT/HCPCS: 71046; 99284; 99285-25; U0002

== ENCOUNTER 2021-03-06 06:04 | Day surgery (SDC) | payer BC ==
[2021-03-06] MEDS ORDERED: Lactated Ringers 1,000 ML IV SCH (07:00)
[2021-03-06] MEDS ORDERED: fentaNYL 100 MCG/2 ML SDV ONE (07:41)
[2021-03-06] MEDS ORDERED: Propofol 200 MG/20 ML SDV ONE (07:41)
[2021-03-06] MEDS ORDERED: Midazolam 1 MG/ML 2 ML SDV ONE (07:41)
--- NOTE | 2021-03-06 13:38 | OR ---
PREOPERATIVE DIAGNOSIS: Screening colonoscopy. POSTOPERATIVE DIAGNOSIS: Colon polyps, suspect hyperplastic. PROCEDURE PERFORMED: Total flexible colonoscopy. ANESTHESIA: MAC anesthesia. COMPLICATIONS: None. BLOOD LOSS: None. FINDINGS: 1. Splenic flexure polyp, 2 mm, cold forceps. 2. Sigmoid polyp, 2 mm, cold forceps. START TIME: 0747. CECUM TIME: 0751. STOP TIME: 0804. BOWEL PREP: [place] class 3. INDICATION FOR PROCEDURE: Mr. Villasenor is a 50-year-old male who is here for his first screening colonoscopy. He denies any bloody or dark black stools, and has no family history of colorectal cancer. DETAILS OF PROCEDURE: Informed consent was obtained. The patient was brought to the procedure room and placed in the left lateral decubitus position. Colonoscope was introduced through the rectum and advanced all the way to the cecum. We could clearly see the ileocecal valve, but due to the redundancy of his long colon, did not clearly see the appendix, although 90% of the cecum was well seen and there were no polyps visualized. The colonoscope was then slowly withdrawn. No pathology was identified except for what is mentioned in the above findings section. Retroflexed view was obtained and the colonoscope was removed. The patient tolerated the procedure well, was awoken from anesthesia by Anesthesia colleagues without incident. PATHOLOGY: Recommend repeat screening colonoscopy in years. RKM: 03/06/2021 08:08:56 MODL: 03/06/2021 11:41:18 /[id number]
== END 2021-03-06 08:55 | disposition home or self-care (01) ==
LOC: VM.SDS 06:04
PROVIDERS: ATTEND Student in an Organized Health Care Education/Training Program
DX: Z12.11 Encounter for screening for malignant neoplasm of colon (principal); K63.5 Polyp of colon; I10 Essential (primary) hypertension; I25.10 Atherosclerotic heart disease of native coronary artery without angina pectoris; G47.33 Obstructive sleep apnea (adult) (pediatric); E78.2 Mixed hyperlipidemia; D57.20 Sickle-cell/Hb-C disease without crisis; E66.01 Morbid (severe) obesity due to excess calories; Z79.4 Long term (current) use of insulin; Z79.899 Other long term (current) drug therapy; Z79.82 Long term (current) use of aspirin; Z91.013 Allergy to seafood
CPT/HCPCS: 00811; 45380; 82947; J2250; J2704; J3010; J7120

== ENCOUNTER 2022-03-09 10:49 | Emergency (ER) | payer BC ==
[2022-03-09 11:41] LABS: CHLORIDE,CL 94 mmol/L (98-107); SODIUM,NA 130 mmol/L (136-145)
[2022-03-09 11:44] LABS: ANION GAP 17.1 mmol/L (5-15); ESTIMATED GFR 29 mL/min (>=60)
[2022-03-09] MEDS ORDERED: Insulin Lispro 100 Units/ML 3 ML Vial SUBCUT ONE (12:16)
[2022-03-09] MEDS ORDERED: Glucagon,Human Recombinant 1 MG Vial IM PRN (12:16)
[2022-03-09] MEDS ORDERED: 50% Dextrose in Water 50 ML Syringe IVPUSH PRN (12:16)
[2022-03-09] MEDS ORDERED: Sodium Chloride 0.9% 1,000 ML IV ONE (12:16)
== END 2022-03-09 14:31 | disposition home or self-care (01) ==
LOC: VM.ED 10:49
DX: I95.9 Hypotension, unspecified (principal); E11.65 Type 2 diabetes mellitus with hyperglycemia; N28.9 Disorder of kidney and ureter, unspecified; R81 Glycosuria; I10 Essential (primary) hypertension; I25.10 Atherosclerotic heart disease of native coronary artery without angina pectoris; Z79.4 Long term (current) use of insulin; Z79.899 Other long term (current) drug therapy; Z91.013 Allergy to seafood
CPT/HCPCS: 36415; 80048; 81001; 82010; 82947; 84484; 85025; 93005; 93010; 96360; 96361; 99285; J1815; J7030

== ENCOUNTER 2024-07-01 10:10 | Emergency (ER) | payer BC ==
[2024-07-01 12:10] VITALS: BP 142/81; PULSE 107
[2024-07-01 12:29] LABS: BASOPHILS PERCENT AUTO 0.5 % (0.2-1.2); EOSINOPHILS ABSOLUTE AUTO 0.1 x10^3/uL (0.0-0.5); EOSINOPHILS PERCENT AUTO 1.2 % (0.0-4.0); HEMATOCRIT 31.3 % (40.0-52.0); HEMOGLOBIN 10.9 g/dL (14.0-18.0); IMMATURE GRAN ABSOLUTE AUTO 0.02 x10^3/uL (0.00-0.07); LYMPHOCYTES ABSOLUTE AUTO 1.3 x10^3/uL (1.0-4.8); LYMPHOCYTES PERCENT AUTO 19.3 % (25.0-50.0); MEAN CORPUSCULAR HEMOGLOBIN 23.7 pg (26.0-32.0); MEAN CORPUSCULAR HGB CONC 34.8 g/dL (32.0-36.0); MEAN CORPUSCULAR VOLUME 68.2 fL (78.0-93.0); MONOCYTES ABSOLUTE AUTO 0.3 x10^3/uL (0.0-0.8); MONOCYTES PERCENT AUTO 4.2 % (2.0-11.0); NEUTROPHILS ABSOLUTE AUTO 4.8 x10^3/uL (1.8-7.7); NEUTROPHILS PERCENT AUTO 74.5 % (50.0-80.0); PLATELET COUNT,PLT 159 x10^3/uL (130-400); RED BLOOD CELL COUNT 4.59 x10^6/uL (4.5-6.0); WHITE BLOOD CELL COUNT,WBC 6.5 x10^3/uL (4.0-10.0)
[2024-07-01] MEDS: methylPREDNISolone Sodium Succinate 125 MG/2 ML SDV IM ONE (13:49)
[2024-07-01] MEDS: predniSONE 20 MG Tab PO ONE (13:49)
== END 2024-07-01 13:57 | disposition home or self-care (01) ==
LOC: SUPCPDRO 10:10 → VM.ED 10:10
DX: M10.9 Gout, unspecified (principal); I10 Essential (primary) hypertension; E78.00 Pure hypercholesterolemia, unspecified; I25.10 Atherosclerotic heart disease of native coronary artery without angina pectoris; E11.9 Type 2 diabetes mellitus without complications; E66.9 Obesity, unspecified; Z68.41 Body mass index [BMI] 40.0-44.9, adult; Z79.899 Other long term (current) drug therapy; Z79.4 Long term (current) use of insulin; Z91.013 Allergy to seafood
CPT/HCPCS: 36415; 73630-RT; 85025; 96372; 99283; J2919; J7512